=== PATIENT | male | born 1955 | race Caucasian/White ===

== ENCOUNTER 2019-01-04 23:03 | Observation (INO) | payer MEDICARE, MEDICAID ==
[2019-01-04] MEDS ORDERED: Nitroglycerin 2% Ointment Foilpak UD TOP STA (23:27)
[2019-01-04] MEDS ORDERED: Morphine 2 mg/ml ISec IVP STA (23:27)
[2019-01-04 23:56] LABS: HEMOGLOBIN 15.6 g/dL (14.0-18.0); MEAN CELL VOLUME 85.2 fl (80.0-105.0); MEAN CORPUSCULAR HEMOGLOBIN 28.9 pg (25.0-35.0); MEAN CORPUSCULAR HGB CONC 33.9 g/dl (31.0-37.0); MEAN PLATELET VOLUME 9.7 fl (7.0-11.0); RBC 5.4 10^6/uL (3.5-6.1); RED CELL DISTRIBUTION WIDTH 13.7 % (11.5-14.5)
[2019-01-04 23:59] LABS: ALB/GLOB RATIO 1.3 (1.1-1.8); ALBUMIN 4.2 g/dL (3.0-4.8); ALT/SGPT 63 U/L (7-56); AST/SGOT 73 U/L (17-59); BLOOD UREA NITROGEN 24 mg/dL (7-21); CALCIUM 9.2 mg/dL (8.4-10.5); GFR NON-AFRICAN AMERICAN 55
[2019-01-05] LABS: INR 1.2; PARTIAL THROMBOPLASTIN TIME 34.6 Seconds (26.9-38.3); PROTHROMBIN TIME 13.3 SECONDS (9.4-12.5)
--- NOTE | 2019-01-05 00:07 | ED PDOC ---
Arrival/HPI - General Chief Complaint: Chest Pain Time Seen by Provider: 01/04/19 23:10 Historian: Patient - History of Present Illness Narrative History of Present Illness (Text): 01/05/19 00:04 63 year old male, whose past medical history includes CAD, CABG, GERD, and COPD, presents to the emergency department complaining of intermittent chest pain, for 5 days. Patient denies any associated shortness of breath. Patient states he was recently admitted to [facility] and discharged. Patient informs pain is localized midsternal region. Patient denies any fever, chills, cough, leg pain, abdominal pain, back pain or any other complaints. Time/Duration: Prior to Arrival, < week Symptom Onset: Gradual Symptom Course: Unchanged Quality: Pressure Activities at Onset: Light Context: Home Past Medical History - Provider Review Nursing Documentation Reviewed: Yes - Cardiac Hx Cardiac Disorders: Yes Hx Pacemaker: No - Pulmonary Hx Respiratory Disorders: Yes Hx Asthma: Yes Hx Chronic Obstructive Pulmonary Disease (COPD): Yes Hx Sleep Apnea: Yes (CPAP) - Neurological Hx Paralysis: No - HEENT Hx HEENT Disorder: No - Renal Hx Renal Disorder: No - Endocrine/Metabolic Hx Endocrine Disorders: Yes Hx Diabetes Mellitus Type 2: Yes - Hematological/Oncological Hx Blood Transfusions: No Hx Blood Transfusion Reaction: No - Integumentary Hx Dermatological Disorder: No - Musculoskeletal/Rheumatological Hx Musculoskeletal Disorders: Yes Hx Back Pain: Yes - Gastrointestinal Hx Gastrointestinal Disorders: Yes Hx Gall Bladder Disease: Yes Hx Gastroesophageal Reflux: Yes - Genitourinary/Gynecological Hx Genitourinary Disorders: No - Psychiatric Hx Psychophysiologic Disorder: No Hx Substance Use: No - Surgical History Hx Coronary Stent: Yes (X5) - Anesthesia Hx Anesthesia: Yes Hx Anesthesia Reactions: No Hx Malignant Hyperthermia: No - Suicidal Assessment Feels Threatened In Home Enviroment: No Family/Social History - Physician Review Nursing Documentation Reviewed: Yes Family/Social History: No Known Family HX Smoking Status: Light Smoker < 10 Cigarettes Daily Hx Alcohol Use: No Hx Substance Use: No Allergies/Home Meds Allergies/Adverse Reactions: Allergies No Known Allergies Allergy (Verified 01/04/19 23:13) Home Medications: Home Meds Medication Instructions Recorded Confirmed Albuterol/Ipratropium [Duoneb 3 3 ml IH QID 01/04/19 01/04/19 mg/0.5 mg (3 ml) UD] Arformoterol [Brovana] 2 ml IH BID 01/04/19 01/04/19 Aspirin [Adult Low Dose Aspirin EC] 81 tab PO DAILY 01/04/19 01/04/19 Budesonide [Pulmicort] 4 ml NEB BID 01/04/19 01/04/19 Gabapentin [Neurontin] 1 cap PO TID 01/04/19 01/04/19 Insulin Lispro-LOW [humALOG LOW] 1 unit SC ACHS 01/04/19 01/04/19 Lisinopril [Zestril] 1 tab PO DAILY 01/04/19 01/04/19 Meclizine [Meclizine*] 1 tab PO TID 01/04/19 01/04/19 Metoprolol Tartrate [Lopressor] 50 mg PO Q12 01/04/19 01/04/19 Montelukast Sodium [Singulair] 1 tab PO DAILY 01/04/19 01/04/19 Potassium Chloride 40 meq PO DAILY 01/04/19 01/04/19 Review of Systems - Physician Review All systems were reviewed & negative as marked: Yes - Review of Systems Constitutional: absent: Fevers, Night Sweats Respiratory: absent: Cough Cardiovascular: Chest Pain Gastrointestinal: absent: Abdominal Pain Musculoskeletal: absent: Back Pain, Other (Denies leg pain) Physical Exam Vital Signs Reviewed: Yes Vital Signs Temp Pulse Resp BP Pulse Ox 01/04/19 23:11 97.6 F 108 H 20 101/67 99 Temperature: Afebrile Blood Pressure: Normal Pulse: Tachycardic Respiratory Rate: Normal Appearance: Positive for: Well-Appearing, Non-Toxic, Comfortable Pain Distress: None Mental Status: Positive for: Alert and Oriented X 3 - Systems Exam Head: Present: Atraumatic, Normocephalic Pupils: Present: PERRL Extroacular Muscles: Present: EOMI Conjunctiva: Present: Normal Mouth: Present: Moist Mucous Membranes Neck: Present: Normal Range of Motion Respiratory/Chest: Present: Clear to Auscultation, Good Air Exchange. No: Respiratory Distress, Accessory Muscle Use Cardiovascular: Present: Regular Rate and Rhythm, Normal S1, S2. No: Murmurs Abdomen: No: Tenderness, Distention, Peritoneal Signs Back: Present: Normal Inspection Upper Extremity: Present: Normal Inspection. No: Cyanosis, Edema Lower Extremity: Present: Normal Inspection. No: Edema, Cyanosis Neurological: Present: GCS=15, CN II-XII Intact, Speech Normal Skin: Present: Warm, Dry, Normal Color. No: Rashes Psychiatric: Present: Alert, Oriented x 3, Normal Insight, Normal Concentration Medical Decision Making ED Course and Treatment: 01/05/19 00:09 Impression: 63 year old male presents with chest pain. Plan: -- EKG -- Cardiac Iso, CMP -- Chest X-ray -- Aspirin -- Morphine -- NTG -- Reassess and disposition Prior Visits: Notes and results from previous visits were reviewed. Progress Notes: EKG Reviewed by me, shows: Sinus Tachycardia @ 104bpm Incomplete RBBB Septal Infarct No acute changes. 01/05/19 01:26 Spoke with medical surgery nurse and Dr Carlos who accept admission to hospitalist service for telemetry observation. - Lab Interpretations Lab Results: PT 13.3 SECONDS (9.4-12.5) H 01/04/19 23:15 INR 1.20 01/04/19 23:15 APTT 34.6 Seconds (26.9-38.3) 01/04/19 23:15 Total Bilirubin 1.0 mg/dL (0.2-1.3) 01/04/19 23:15 AST 73 U/L (17-59) H 01/04/19 23:15 ALT 63 U/L (7-56) H 01/04/19 23:15 Alkaline Phosphatase 81 U/L (38-126) 01/04/19 23:15 Total Protein 7.4 g/dL (5.8-8.3) 01/04/19 23:15 Albumin 4.2 g/dL (3.0-4.8) 01/04/19 23:15 Globulin 3.2 gm/dL 01/04/19 23:15 Albumin/Globulin Ratio 1.3 (1.1-1.8) 01/04/19 23:15 - RAD Interpretation Radiology Orders: 01/04/19 23:27 CHEST PORTABLE [RAD] Stat - Medication Orders Current Medication Orders: Discontinued Medications Aspirin (Aspirin) 325 mg PO ONCE STA Stop: 01/04/19 23:28 Last Admin: 01/04/19 23:42 Dose: 325 mg Morphine Sulfate (Morphine) 2 mg IVP STAT STA Stop: 01/04/19 23:28 Last Admin: 01/04/19 23:41 Dose: 2 mg MAR Pain Assessment Document 01/04/19 23:41 IT (Rec: 01/04/19 23:42 IT [id number]) Pain Reassessment Is this a pain reassessment? No Sleep Is patient sleeping during reassessment? No Presence of Pain Presence of Pain No Pain Scale Used Protocol: PSCALES Pain Scale Used Numeric IVP Administration Document 01/04/19 23:41 IT (Rec: 01/04/19 23:42 IT [id number]) Charges for Administration # of IVP Administrations 1 Nitroglycerin (Nitro-Bid 2% Oint) 1 ea TOP ONCE STA Stop: 01/04/19 23:28 Last Admin: 01/04/19 23:42 Dose: 1 ea - Scribe Statement The provider has reviewed the documentation as recorded by the Scribe Vicente Paz Provider Scribe Attestation: All medical record entries made by the Scribe were at my direction and personally dictated by me. I have reviewed the chart and agree that the record accurately reflects my personal performance of the history, physical exam, medical decision making, and the department course for this patient. I have also personally directed, reviewed, and agree with the discharge instructions and disposition. Disposition/Present on Arrival - Present on Arrival Any Indicators Present on Arrival: No History of DVT/PE: No History of Uncontrolled Diabetes: No Urinary Catheter: No History of Decub. Ulcer: No History Surgical Site Infection Following: None - Disposition Have Diagnosis and Disposition been Completed?: Yes Diagnosis: Chest pain Disposition: HOSPITALIZED Disposition Time: 01:26 Patient Problems: Current Active Problems Problem Status Onset Chest pain Acute Condition: STABLE Discharge Instructions (ExitCare): Chest Pain (ED) Referrals: Landen Landaverde Jr., MD [Primary Care Provider] - Follow up with primary Forms: [employer] ([place])
[2019-01-05 00:10] LABS: TROPONIN I < 0.01 ng/mL
--- NOTE | 2019-01-05 02:06 | CP.PCM.HP ---
<Cornell Hall - Last Filed: 01/05/19 06:23> History of Present Illness - History of Present Illness History of Present Illness: Cornell Hall DO PGY-1 H&P Note for Dr. Terrance Harris: mid-sternal chest pain 63 y/o male with PMH of HTN, DM2, CAD s/p PCI with stents, CABG, diabetic neuropathy, COPD, ARAM presents to the ED with mid-sternal chest pain x5days. Pain is intermittent, 8/10lasts for few minutes, occurs at rest and with exertion, alleviated by rest. It's associated with SOB, diaphoresis. He also reports PEREZ, exercise intolerance, gets SOB after climbing few steps of stairs. Patient states that he was admitted to [facility] last week for the same symptoms and was scheduled for cardiac cath but because it was postponed for many days he left the hospital without doing it. Patient reports having recent pharmacologic stress test that was abnormal. He sleeps on 2 pillows, uses CPAP for ARAM. He denied palpitations, headache, cough, urinary/GI symptoms. 12 points ROS reviewed and otherwise negative PMHx: HTN, DM2, CAD, diabetic neuropathy, COPD, ARAM PSHx: PCI with stents, CABG FH: non contributory Social Hx: current smoker, 6-7 cigarettes/day. Denies alcohol or illicit drug use All:NKDA Meds: duoneb, brovana, pulmicort, singulair, asa, lisinopril, KCL, metoprolol, meclizine, humalog, neurontin Present on Admission - Present on Admission Any Indicators Present on Admission: No Past Patient History - Past Medical History & Family History Past Medical History?: Yes - Past Social History Smoking Status: Light Smoker < 10 Cigarettes Daily - CARDIAC Hx Cardiac Disorders: Yes Hx Pacemaker: No - PULMONARY Hx Respiratory Disorders: Yes Hx Asthma: Yes Hx Chronic Obstructive Pulmonary Disease (COPD): Yes Hx Sleep Apnea: Yes (CPAP) - NEUROLOGICAL Hx Paralysis: No - HEENT Hx HEENT Problems: No - RENAL Hx Chronic Kidney Disease: No - ENDOCRINE/METABOLIC Hx Endocrine Disorders: Yes Hx Diabetes Mellitus Type 2: Yes - HEMATOLOGICAL/ONCOLOGICAL Hx Blood Transfusions: No Hx Blood Transfusion Reaction: No - INTEGUMENTARY Hx Dermatological Problems: No - MUSCULOSKELETAL/RHEUMATOLOGICAL Hx Musculoskeletal Disorders: Yes Hx Back Pain: Yes - GASTROINTESTINAL Hx Gastrointestinal Disorders: Yes Hx Gall Bladder Disease: Yes Hx Gastroesophageal Reflux: Yes - GENITOURINARY/GYNECOLOGICAL Hx Genitourinary Disorders: No - PSYCHIATRIC Hx Psychophysiologic Disorder: No Hx Substance Use: No - SURGICAL HISTORY Hx Coronary Stent: Yes (X5) - ANESTHESIA Hx Anesthesia: Yes Hx Anesthesia Reactions: No Hx Malignant Hyperthermia: No Meds Allergies/Adverse Reactions: Allergies Allergy/AdvReac Type Severity Reaction Status Date / Time No Known Allergies Allergy Verified 01/04/19 23:13 Physical Exam - Constitutional Appears: Well, Non-toxic, No Acute Distress - Head Exam Head Exam: ATRAUMATIC, NORMAL INSPECTION, NORMOCEPHALIC - Eye Exam Eye Exam: EOMI, Normal appearance, PERRL Pupil Exam: NORMAL ACCOMODATION, PERRL - ENT Exam ENT Exam: Mucous Membranes Moist, Normal Exam - Neck Exam Neck exam: Positive for: Normal Inspection - Respiratory Exam Respiratory Exam: Clear to Auscultation Bilateral, NORMAL BREATHING PATTERN Additional comments: sternotomy scar - Cardiovascular Exam Cardiovascular Exam: REGULAR RHYTHM, +S1, +S2 - GI/Abdominal Exam GI & Abdominal Exam: Normal Bowel Sounds, Soft. absent: Tenderness - Extremities Exam Extremities exam: Positive for: normal inspection - Back Exam Back exam: NORMAL INSPECTION - Neurological Exam Neurological exam: Alert, CN II-XII Intact, Normal Gait, Oriented x3, Reflexes Normal - Psychiatric Exam Psychiatric exam: Normal Affect, Normal Mood - Skin Skin Exam: Dry, Intact, Normal Color, Warm Results - Vital Signs Recent Vital Signs: Last Vital Signs Temp 97.6 F 01/04/19 23:11 Pulse 97 H 01/05/19 01:28 Resp 18 01/05/19 01:28 BP 98/70 L 01/05/19 01:28 Pulse Ox 98 01/05/19 01:28 - Labs Result Diagrams: 01/04/19 23:15 01/04/19 23:15 Labs: Laboratory Results - last 24 hr 01/04/19 01/04/19 01/04/19 23:15 23:15 23:15 WBC 11.0 RBC 5.40 Hgb 15.6 Hct 46.0 MCV 85.2 MCH 28.9 MCHC 33.9 RDW 13.7 Plt Count 228 MPV 9.7 PT 13.3 H INR 1.20 APTT 34.6 Sodium 137 Potassium 4.3 Chloride 104 Carbon Dioxide 22 Anion Gap 16 BUN 24 H Creatinine 1.3 Est GFR ( Amer) > 60 Est GFR (Non-Af Amer) 55 Random Glucose 174 H Calcium 9.2 Total Bilirubin 1.0 AST 73 H ALT 63 H Alkaline Phosphatase 81 Lactate Dehydrogenase 520 Total Creatine Kinase 98 Troponin I < 0.01 Total Protein 7.4 Albumin 4.2 Globulin 3.2 Albumin/Globulin Ratio 1.3 Assessment & Plan - Assessment and Plan (Free Text) Assessment: 63 y/o male with PMH of HTN, DM2, CAD s/p PCI with stents, CABG, diabetic neuropathy, COPD, ARAM presents to the ED with mid-sternal chest pain x5days. Admitted to r/o ACS Plan: -Chest pain r/o ACS: -EKG:Sinus Tachycardia @ 104bpm. Incomplete RBBB. No ST-T changes -CXR: cardiomegaly -trop negative x1. continue to trend x2 -nitroglyserine SL prn -cardiology consulted, Dr Kirkpatrick HTN, CAD s/p CABG, PCI with stents: -continue home meds asa, lisinopril, metoprolol -lipid panel, TSH COPD: -continue home meds duoneb, brovana, pulmicort, singulair -O2 NC prn DM2 with neuropathy: -ISS -levemir 15 u HS -accucheck -A1C -continue home med neurontin Tranaminitis: -hepatitis panel ARAM: -continue home CPAP h/o smoking: -nicotine patch 7mg TD -PPX: DVT: SCD GI: protonix NPO Case reviewed and plan discussed with Dr Terrance Hall, DO PGY1 <Sofia Carlos - Last Filed: 01/05/19 06:52> Results - Vital Signs Recent Vital Signs: Last Vital Signs Temp 98.2 F 01/05/19 02:15 Pulse 86 01/05/19 06:00 Resp 18 01/05/19 02:27 BP 101/61 01/05/19 02:15 Pulse Ox 98 01/05/19 02:15 - Labs Result Diagrams: 01/05/19 06:00 01/05/19 06:00 Labs: Laboratory Results - last 24 hr 01/04/19 01/04/19 01/04/19 23:15 23:15 23:15 WBC 11.0 RBC 5.40 Hgb 15.6 Hct 46.0 MCV 85.2 MCH 28.9 MCHC 33.9 RDW 13.7 Plt Count 228 MPV 9.7 Neut % (Auto) Lymph % (Auto) [place] % (Auto) Eos % (Auto) Baso % (Auto) Lymph # (Auto) [place] # (Auto) Eos # (Auto) Baso # (Auto) Absolute Neuts (auto) PT 13.3 H INR 1.20 APTT 34.6 Sodium 137 Potassium 4.3 Chloride 104 Carbon Dioxide 22 Anion Gap 16 BUN 24 H Creatinine 1.3 Est GFR ( Amer) > 60 Est GFR (Non-Af Amer) 55 Random Glucose 174 H Calcium 9.2 Phosphorus Magnesium Total Bilirubin 1.0 AST 73 H ALT 63 H Alkaline Phosphatase 81 Lactate Dehydrogenase 520 Total Creatine Kinase 98 Troponin I < 0.01 Total Protein 7.4 Albumin 4.2 Globulin 3.2 Albumin/Globulin Ratio 1.3 Triglycerides Cholesterol LDL Cholesterol Direct HDL Cholesterol 01/05/19 01/05/19 06:00 06:00 WBC 8.7 D RBC 4.97 Hgb 14.2 Hct 42.6 MCV 85.7 MCH 28.6 MCHC 33.3 RDW 13.6 Plt Count 182 MPV 10.0 Neut % (Auto) 44.7 L Lymph % (Auto) 40.2 H [place] % (Auto) 5.4 Eos % (Auto) 9.2 H Baso % (Auto) 0.5 Lymph # (Auto) 3.5 H [place] # (Auto) 0.5 Eos # (Auto) 0.8 H Baso # (Auto) 0.04 Absolute Neuts (auto) 3.89 PT INR APTT Sodium 138 Potassium 4.0 Chloride 106 Carbon Dioxide 22 Anion Gap 13 BUN 28 H Creatinine 1.1 Est GFR ( Amer) > 60 Est GFR (Non-Af Amer) > 60 Random Glucose 138 H Calcium 8.7 Phosphorus 4.0 Magnesium 1.6 L Total Bilirubin 0.7 AST 58 ALT 54 Alkaline Phosphatase 67 Lactate Dehydrogenase Total Creatine Kinase Troponin I < 0.01 Total Protein 6.2 Albumin 3.5 Globulin 2.7 Albumin/Globulin Ratio 1.3 Triglycerides 343 H Cholesterol 160 LDL Cholesterol Direct 78 HDL Cholesterol 23 L Attending/Attestation - Attestation I have personally seen and examined this patient.: Yes I have fully participated in the care of the patient.: Yes I have reviewed all pertinent clinical information: Yes Notes (Text): 01/05/19 06:51 Patient was seen when he was in the ER in cubicle # 6. Medical record was reviewed. Agree with history, physical examination, assessment and plan.
[2019-01-05] MEDS ORDERED: Albuterol-Ipratrop 3 mg / 0.5 (3 ml) UD IH PRN (02:15)
[2019-01-05] MEDS ORDERED: Dextrose 50% SYRINGE Inj (50 ml) IV PRN (02:20)
[2019-01-05] MEDS ORDERED: Sodium Chloride 0.9% 1,000 ML IV SCH (02:30)
[2019-01-05 02:33] VITALS: BMI 38.2
[2019-01-05 06:26] LABS: BASO # 0.04 K/mm3 (0.0-2.0); BASO % 0.5 % (0.0-3.0); EOS # 0.8 (0.0-0.7); EOS % 9.2 % (1.5-5.0); HEMOGLOBIN 14.2 g/dL (14.0-18.0); LYMPH # 3.5 (1.2-3.4); LYMPH % 40.2 % (22.0-35.0); MEAN CELL VOLUME 85.7 fl (80.0-105.0); MEAN CORPUSCULAR HEMOGLOBIN 28.6 pg (25.0-35.0); MEAN CORPUSCULAR HGB CONC 33.3 g/dl (31.0-37.0); MONO # 0.5 (0.1-0.6); MONO % 5.4 % (1.0-6.0); RBC 4.97 10^6/uL (3.5-6.1); RED CELL DISTRIBUTION WIDTH 13.6 % (11.5-14.5); WHITE BLOOD COUNT 8.7 10^3/uL (4.5-11.0)
[2019-01-05 06:35] LABS: ALB/GLOB RATIO 1.3 (1.1-1.8); ALBUMIN 3.5 g/dL (3.0-4.8); ALT/SGPT 54 U/L (7-56); AST/SGOT 58 U/L (17-59); BLOOD UREA NITROGEN 28 mg/dL (7-21); CALCIUM 8.7 mg/dL (8.4-10.5); GFR NON-AFRICAN AMERICAN > 60; HDL CHOLESTEROL 23 mg/dL (29-60)
[2019-01-05 06:44] LABS: TROPONIN I < 0.01 ng/mL
[2019-01-05 06:45] LABS: LDL CHOLESTEROL 78 mg/dL (0-129)
[2019-01-05 07:07] VITALS: BP 100/64; PULSE 97; RESP 19; TEMP 98.7; O2SAT 97
[2019-01-05] MEDS ORDERED: Insulin Reg-LOW-Coverage SC SCH (07:30)
[2019-01-05] MEDS ORDERED: Albuterol-Ipratrop 3 mg / 0.5 (3 ml) UD IH SCH (07:30)
[2019-01-05] MEDS ORDERED: Insulin Lispro (humaLOG) LOW Coverage SC SCH (07:30)
[2019-01-05] MEDS ORDERED: Budesonide 0.5 mg/2 ml Inhal Susp UD IH SCH (08:00)
[2019-01-05] MEDS ORDERED: Arformoterol 15 mcg/2 ml Inh Sol IH SCH (08:00)
[2019-01-05] MEDS: Albuterol-Ipratrop 3 mg / 0.5 (3 ml) UD IH SCH ×2 (08:05→13:18)
--- NOTE | 2019-01-05 08:35 | RAD ---
HISTORY: chest pain COMPARISON: Chest x-ray performed 03/30/15 TECHNIQUE: Chest, one view. FINDINGS: Examination limited by habitus. LUNGS: Bibasilar atelectasis/infiltrates. Please note that chest x-ray has limited sensitivity for the detection of pulmonary masses. PLEURA: Small right pleural effusion/pleural thickening. No definite pneumothorax . CARDIOVASCULAR: Median sternotomy wires. Cardiomegaly. OSSEOUS STRUCTURES: Degenerative changes. VISUALIZED UPPER ABDOMEN: Elevation of the right hemidiaphragm. OTHER FINDINGS: None. IMPRESSION: Bibasilar atelectasis/infiltrates. Small right pleural effusion/pleural thickening. Cardiomegaly with median sternotomy wires.
[2019-01-05 12:05] LABS: HEPATITIS B SURFACE AG Negative (NEGATIVE)
[2019-01-05 12:11] LABS: HEPATITIS A IGM NEGATIVE (NEGATIVE); HEPATITIS B CORE AB NEGATIVE (NEGATIVE)
[2019-01-05 12:23] LABS: HEPATITIS C ANTIBODY NEGATIVE (NEGATIVE)
--- NOTE | 2019-01-05 13:58 | CP.PCM.DIS ---
<Dacia Nielsen - Last Filed: 01/05/19 14:14> Provider - Provider Date of Admission: 01/05/19 01:29 Attending physician: Pedro Perez MD Primary care physician: Landen Landaverde Jr, MD Consults: 01/05/19 02:13 Consult [Physician Consult] Routine Comment: Consulting Provider: Sundeep Felder Consulting Physician: Sundeep Felder Reason for Consult: CP, h/o CAD, CABG, PCI stents Time Spent in preparation of Discharge (in minutes): 35 Hospital Course - Lab Results Lab Results: Most Recent Lab Values WBC 8.7 10^3/uL (4.5-11.0) D 01/05/19 06:00 RBC 4.97 10^6/uL (3.5-6.1) 01/05/19 06:00 Hgb 14.2 g/dL (14.0-18.0) 01/05/19 06:00 Hct 42.6 % (42.0-52.0) 01/05/19 06:00 MCV 85.7 fl (80.0-105.0) 01/05/19 06:00 MCH 28.6 pg (25.0-35.0) 01/05/19 06:00 MCHC 33.3 g/dl (31.0-37.0) 01/05/19 06:00 RDW 13.6 % (11.5-14.5) 01/05/19 06:00 Plt Count 182 10^3/uL (120.0-450.0) 01/05/19 06:00 MPV 10.0 fl (7.0-11.0) 01/05/19 06:00 Neut % (Auto) 44.7 % (50.0-68.0) L 01/05/19 06:00 Lymph % (Auto) 40.2 % (22.0-35.0) H 01/05/19 06:00 [place] % (Auto) 5.4 % (1.0-6.0) 01/05/19 06:00 Eos % (Auto) 9.2 % (1.5-5.0) H 01/05/19 06:00 Baso % (Auto) 0.5 % (0.0-3.0) 01/05/19 06:00 Lymph # (Auto) 3.5 (1.2-3.4) H 01/05/19 06:00 [place] # (Auto) 0.5 (0.1-0.6) 01/05/19 06:00 Eos # (Auto) 0.8 (0.0-0.7) H 01/05/19 06:00 Baso # (Auto) 0.04 K/mm3 (0.0-2.0) 01/05/19 06:00 Absolute Neuts (auto) 3.89 (1.4-6.5) 01/05/19 06:00 PT 13.3 SECONDS (9.4-12.5) H 01/04/19 23:15 INR 1.20 01/04/19 23:15 APTT 34.6 Seconds (26.9-38.3) 01/04/19 23:15 Sodium 138 mmol/L (132-148) 01/05/19 06:00 Potassium 4.0 mmol/L (3.6-5.0) 01/05/19 06:00 Chloride 106 mmol/L (98-107) 01/05/19 06:00 Carbon Dioxide 22 mmol/L (21-33) 01/05/19 06:00 Anion Gap 13 (10-20) 01/05/19 06:00 BUN 28 mg/dL (7-21) H 01/05/19 06:00 Creatinine 1.1 mg/dl (0.8-1.5) 01/05/19 06:00 Est GFR ( Amer) > 60 01/05/19 06:00 Est GFR (Non-Af Amer) > 60 01/05/19 06:00 POC Glucose (mg/dL) 135 mg/dL (65-110) H 01/05/19 07:43 Random Glucose 138 mg/dL (70-110) H 01/05/19 06:00 Hemoglobin A1c 8.0 % (4.2-6.5) H D 01/05/19 06:00 Calcium 8.7 mg/dL (8.4-10.5) 01/05/19 06:00 Phosphorus 4.0 mg/dL (2.5-4.5) 01/05/19 06:00 Magnesium 1.6 mg/dL (1.7-2.2) L 01/05/19 06:00 Total Bilirubin 0.7 mg/dL (0.2-1.3) 01/05/19 06:00 AST 58 U/L (17-59) 01/05/19 06:00 ALT 54 U/L (7-56) 01/05/19 06:00 Alkaline Phosphatase 67 U/L (38-126) 01/05/19 06:00 Lactate Dehydrogenase 520 U/L (333-699) 01/04/19 23:15 Total Creatine Kinase 98 U/L (35-230) 01/04/19 23:15 Troponin I < 0.01 ng/mL 01/05/19 06:00 Total Protein 6.2 g/dL (5.8-8.3) 01/05/19 06:00 Albumin 3.5 g/dL (3.0-4.8) 01/05/19 06:00 Globulin 2.7 gm/dL 01/05/19 06:00 Albumin/Globulin Ratio 1.3 (1.1-1.8) 01/05/19 06:00 Triglycerides 343 mg/dL (35-160) H 01/05/19 06:00 Cholesterol 160 mg/dL (130-200) 01/05/19 06:00 LDL Cholesterol Direct 78 mg/dL (0-129) 01/05/19 06:00 HDL Cholesterol 23 mg/dL (29-60) L 01/05/19 06:00 TSH 3rd Generation 1.47 mIU/mL (0.46-4.68) 01/05/19 06:00 Hepatitis A IgM Ab Negative (NEGATIVE) 01/05/19 06:00 Hep Bs Antigen Negative (NEGATIVE) 01/05/19 06:00 Hep B Core IgM Ab Negative (NEGATIVE) 01/05/19 06:00 Hepatitis C Antibody Negative (NEGATIVE) 01/05/19 06:00 - Hospital Course Hospital Course: Upon Admission 63 y/o male PMHx of HTN, DM2, CAD s/p PCI with stents, CABG, diabetic neuropathy, COPD, ARAM presents to the ED with mid-sternal chest pain x 5days. Patient reported pain was intermittent 8/10 in intensity, lasted a few minutes and occurred both at rest and with exertion. He also admitted to associated dyspnea and diaphoresis. He complained of exercise intolerance, gets SOB after climbing few steps of stairs. Patient was admitted to [facility] the week prior for similar symptoms and was scheduled for a cardiac cath after results of a stress test however he signed out AMA and left the hospital as the cardiac cath was postponed for many days. He sleeps on 2 pillows, uses CPAP for ARAM. He denied palpitations, headache, cough, urinary/GI symptoms. Hospital Course Patient was admitted to telemtry floor and cardiology was consulted. Records were requested to be faxed over from [facility]. Patient had negative trop x 2 but had an elevated HgbA1c of 8 and elevated TG on his fasting lipid panel. Patient was started on home meds ASA, lisinopril, metoprolol and nitro sl prn for chest pain. Patient was also placed on Accucheck with RISS and Levemir 15u qhs for history of IDDM with neuropathy. Patient's home meds for COPD were continued and he was given a nicotine patch for his history of tobacco abuse and counseled on the importance of smoking cessation. Overnight patient had no acute events however in the morning patient was refusing AM meds and refused to eat and demanded to be seen by enamel sprayer. Patient was counseled thoroughly on the importance of complying to take his cardiac medications but refused. Cardiology examined patient and ordered an echo. Patient was aware that he would have a cardiac cath done on Tuesday. Patient began to become agitated and refused further medications, blood work, and refused to go down for Echo. He removed his heart monitor and requested to leave the hospital. Patient was informed that he would have to leave against medical advice and would not be able to be discharged. House doc was paged however patient refused to sign the AMA form and left ambulatory prior to being examined by the house doc. Discharge Exam - Head Exam Additional comments: patient refused to be examined Discharge Plan - Follow Up Plan Condition: GUARDED Disposition: AGAINST MEDICAL ADVICE Instructions: Chest Pain (DC), Chest Pain (GEN) Referrals: Landen Landaverde Jr., MD [Primary Care Provider] - <Pedro Perez - Last Filed: 01/05/19 15:24> Provider - Provider Date of Admission: 01/05/19 01:29 Attending physician: Pedro Perez MD Primary care physician: Landen Landaverde Jr, MD Consults: 01/05/19 02:13 Consult [Physician Consult] Routine Comment: Consulting Provider: Sundeep Felder Consulting Physician: Sundeep Felder Reason for Consult: CP, h/o CAD, CABG, PCI stents Hospital Course - Lab Results Lab Results: Most Recent Lab Values WBC 8.7 10^3/uL (4.5-11.0) D 01/05/19 06:00 RBC 4.97 10^6/uL (3.5-6.1) 01/05/19 06:00 Hgb 14.2 g/dL (14.0-18.0) 01/05/19 06:00 Hct 42.6 % (42.0-52.0) 01/05/19 06:00 MCV 85.7 fl (80.0-105.0) 01/05/19 06:00 MCH 28.6 pg (25.0-35.0) 01/05/19 06:00 MCHC 33.3 g/dl (31.0-37.0) 01/05/19 06:00 RDW 13.6 % (11.5-14.5) 01/05/19 06:00 Plt Count 182 10^3/uL (120.0-450.0) 01/05/19 06:00 MPV 10.0 fl (7.0-11.0) 01/05/19 06:00 Neut % (Auto) 44.7 % (50.0-68.0) L 01/05/19 06:00 Lymph % (Auto) 40.2 % (22.0-35.0) H 01/05/19 06:00 [place] % (Auto) 5.4 % (1.0-6.0) 01/05/19 06:00 Eos % (Auto) 9.2 % (1.5-5.0) H 01/05/19 06:00 Baso % (Auto) 0.5 % (0.0-3.0) 01/05/19 06:00 Lymph # (Auto) 3.5 (1.2-3.4) H 01/05/19 06:00 [place] # (Auto) 0.5 (0.1-0.6) 01/05/19 06:00 Eos # (Auto) 0.8 (0.0-0.7) H 01/05/19 06:00 Baso # (Auto) 0.04 K/mm3 (0.0-2.0) 01/05/19 06:00 Absolute Neuts (auto) 3.89 (1.4-6.5) 01/05/19 06:00 PT 13.3 SECONDS (9.4-12.5) H 01/04/19 23:15 INR 1.20 01/04/19 23:15 APTT 34.6 Seconds (26.9-38.3) 01/04/19 23:15 Sodium 138 mmol/L (132-148) 01/05/19 06:00 Potassium 4.0 mmol/L (3.6-5.0) 01/05/19 06:00 Chloride 106 mmol/L (98-107) 01/05/19 06:00 Carbon Dioxide 22 mmol/L (21-33) 01/05/19 06:00 Anion Gap 13 (10-20) 01/05/19 06:00 BUN 28 mg/dL (7-21) H 01/05/19 06:00 Creatinine 1.1 mg/dl (0.8-1.5) 01/05/19 06:00 Est GFR ( Amer) > 60 01/05/19 06:00 Est GFR (Non-Af Amer) > 60 01/05/19 06:00 POC Glucose (mg/dL) 135 mg/dL (65-110) H 01/05/19 07:43 Random Glucose 138 mg/dL (70-110) H 01/05/19 06:00 Hemoglobin A1c 8.0 % (4.2-6.5) H D 01/05/19 06:00 Calcium 8.7 mg/dL (8.4-10.5) 01/05/19 06:00 Phosphorus 4.0 mg/dL (2.5-4.5) 01/05/19 06:00 Magnesium 1.6 mg/dL (1.7-2.2) L 01/05/19 06:00 Total Bilirubin 0.7 mg/dL (0.2-1.3) 01/05/19 06:00 AST 58 U/L (17-59) 01/05/19 06:00 ALT 54 U/L (7-56) 01/05/19 06:00 Alkaline Phosphatase 67 U/L (38-126) 01/05/19 06:00 Lactate Dehydrogenase 520 U/L (333-699) 01/04/19 23:15 Total Creatine Kinase 98 U/L (35-230) 01/04/19 23:15 Troponin I < 0.01 ng/mL 01/05/19 06:00 Total Protein 6.2 g/dL (5.8-8.3) 01/05/19 06:00 Albumin 3.5 g/dL (3.0-4.8) 01/05/19 06:00 Globulin 2.7 gm/dL 01/05/19 06:00 Albumin/Globulin Ratio 1.3 (1.1-1.8) 01/05/19 06:00 Triglycerides 343 mg/dL (35-160) H 01/05/19 06:00 Cholesterol 160 mg/dL (130-200) 01/05/19 06:00 LDL Cholesterol Direct 78 mg/dL (0-129) 01/05/19 06:00 HDL Cholesterol 23 mg/dL (29-60) L 01/05/19 06:00 TSH 3rd Generation 1.47 mIU/mL (0.46-4.68) 01/05/19 06:00 Hepatitis A IgM Ab Negative (NEGATIVE) 01/05/19 06:00 Hep Bs Antigen Negative (NEGATIVE) 01/05/19 06:00 Hep B Core IgM Ab Negative (NEGATIVE) 01/05/19 06:00 Hepatitis C Antibody Negative (NEGATIVE) 01/05/19 06:00 Attending/Attestation - Attestation I have personally seen and examined this patient.: Yes I have fully participated in the care of the patient.: Yes I have reviewed all pertinent clinical information, including history, physical exam and plan: Yes Notes (Text): 01/05/19 15:19 63 year old male with past medical history of CAD s/p CABG, hypertension, COPD and diabetes who presented with complaint of chest pain. He was recently at [facility] and signed out AMA as per patient earlier this week. Serial cardiac enzymes x 2 were negative. Cardiology evaluation was requested and echocardiogram was ordered. Plan was for possible cardiac cath however patient eloped. Pedro Perez MD Hospitalist.
--- NOTE | 2019-01-05 14:53 | CARD ---
APPROVED REPORT Date of service: 01/04/2019 EKG Measurement Heart [id number] <Conclusion> Sinus tachycardia Possible Left atrial enlargement Incomplete right bundle branch block Possible Septal infarct, age Old.
[2019-01-05] MEDS ORDERED: Insulin Detemir 100 units/ml Vial (Levemir) SC SCH (22:00)
--- NOTE | 2019-01-05 23:12 | CON ---
DATE OF CONSULTATION: 01/05/2019 CARDIOLOGY CONSULTATION REASON FOR CONSULTATION: Chest pain. HISTORY OF PRESENT ILLNESS: The patient is a 63-year-old [place] male, who has history of coronary artery disease, underwent triple bypass surgery at [facility] some 10-12 years ago according to the patient's recollection. He was recently admitted to [facility] because of chest pain and cardiac catheterization was recommended; however, the procedure was delayed according to the patient because of a busy cardiac concrete plant laborer. The patient signed against medical advice, stayed 1 day at home, and came back to [facility] with the intention to have his cardiac catheterization performed. The patient denies any chest pain at the time of my evaluation, and he denies any shortness of breath. SOCIAL HISTORY: The patient is a smoker. He is nondrinker. PAST MEDICAL HISTORY: Hypertension, diabetes mellitus, coronary artery disease status post coronary bypass surgery some 10-12 years ago. MEDICATIONS: Antivert 25 g t.i.d., Brovana 15 mcg inhalation every 12 hours, aspirin 81 mg once a day, Lopressor 50 mg twice a day, Neurontin 400 mg t.i.d., nicotine patch, Zestril 20 mg once a day, normal saline 100 mL an hour. REVIEW OF SYSTEMS: No nausea or vomiting. No fever or chills. PHYSICAL EXAMINATION: GENERAL: The patient is an elderly male, who does not appear to be in acute distress. VITAL SIGNS: Blood pressure 100/64, heart rate 97, temperature 98.7, and respirations 19. HEENT: Normocephalic. CHEST: Bibasilar rhonchi. HEART: S1 and S2 are regular. ABDOMEN: Soft. EXTREMITIES: Trace leg edema. LABORATORY DATA: Admitting CBC is entirely within normal limits. Today's SMA-7, sodium 138, potassium 4, chloride 106, CO2 of 22, glucose 138, BUN 28, creatinine 1.1. Two sets of troponins are negative. Triglycerides elevated at 343, HDL has been below normal at 23. INR and PTT are within normal limits. EKG revealed sinus tachycardia at a rate of 104. Incomplete right bundle-branch block. The most recent echo on record was from March 2015, which revealed borderline concentric LVH with normal ejection fraction and grade 1 abnormal relaxation pattern. ASSESSMENT: 1. Chest pain, myocardial infarction was ruled out. 2. History of coronary artery disease, status post coronary artery bypass surgery some 10-12 years ago. 3. Uncontrolled diabetes mellitus. 4. Hypertriglyceridemia. RECOMMENDATIONS: Continue aspirin 81 mg once a day, Lopressor 50 mg twice a day, Zestril 20 mg once a day. Start Lipitor at 20 mg once a day, Plavix 75 mg once a day. The patient was told that the cardiac catheterization can be scheduled for Tuesday; however, he wants to go home and come back on Tuesday on his own responsibility. The patient is fully aware of his decision. Sundeep Felder MD
== END 2019-01-05 13:53 | disposition left against medical advice (07) ==
LOC: ED 23:03 → ERH 01-05 01:29 → 3RNO 01-05 02:20
PROVIDERS: ADMIT Hospitalist; ATTEND Internal Medicine
DX: R07.9 Chest pain, unspecified (principal); I25.10 Atherosclerotic heart disease of native coronary artery without angina pectoris; I10 Essential (primary) hypertension; J44.9 Chronic obstructive pulmonary disease, unspecified; E11.40 Type 2 diabetes mellitus with diabetic neuropathy, unspecified; E78.1 Pure hyperglyceridemia; F17.210 Nicotine dependence, cigarettes, uncomplicated; G47.33 Obstructive sleep apnea (adult) (pediatric); K21.9 Gastro-esophageal reflux disease without esophagitis; Z79.4 Long term (current) use of insulin; Z95.1 Presence of aortocoronary bypass graft; Z95.5 Presence of coronary angioplasty implant and graft; Z79.82 Long term (current) use of aspirin
CPT/HCPCS: 36415; 71045; 80053; 80061; 80074; 82550; 82948; 83036; 83615; 83735; 84100; 84443; 84484; 85025; 85027; 85610; 85730; 93005; 94640; 96374; 99285; G0378; J2270; J7030